=== PATIENT | male | born 1960 | race Caucasian/White ===

== ENCOUNTER 2017-07-19 08:46 | Inpatient (IN) | payer OTHER ==
[2017-07-19] VITALS (7 sets, daily range): BP systolic 92–103
[~2017-07-19] VITALS: Ht 177.8 cm; Wt 68.0 kg
[~2017-07-19 08:46] MED LIST: ALBMDI INH; ALBU2.5V7 INH; AMYL1CAP58 PO; DORNASE ALFA 2.5 MG INH; ESCI20TA PO; FERR-57 PO; FLUC200T38 PO; FLUT16SP16 NS; IPRA0.2S6 INH; IPRA3AMP9 INH; MULT-300 PO; PRO40 PO; QUET200T PO; SODI104S3 NS
[2017-07-19] MEDS ORDERED: ALBUTEROL SULFATE 0.083% 2.5 MG/3 ML VIAL.NEB INH ONE (08:52)
[2017-07-19] MEDS ORDERED: PIPERACILLIN/TAZO 3.375 GM in NS 50 ML IV ONE (09:00)
[2017-07-19] MEDS ORDERED: methylPREDNISolone SOD SUCC/PF 62.5 MG/ML VIAL IVP ONE (09:00)
[2017-07-19] MEDS ORDERED: NACL 0.9% 1,000 ML IV ONE (09:00)
[2017-07-19] MEDS ORDERED: ONDANSETRON HCL 4 MG/2 ML VIAL IVP ONE (09:00)
[2017-07-19] MEDS ORDERED: ALBUTEROL SULFATE 0.083% 2.5 MG/3 ML VIAL.NEB IH ONE (09:00)
[2017-07-19] MEDS ORDERED: PIPERACILLIN/TAZOBACTAM 3.375 GM/VIAL (ZOSYN) IV ONE (09:14)
[2017-07-19] MEDS ORDERED: QUET200T PO (09:29)
[2017-07-19] MEDS ORDERED: DOCU-144 PO (09:29)
[2017-07-19] MEDS ORDERED: OMEP20CA10 PO (09:42)
[2017-07-19] MEDS ORDERED: CIPR-211 PO (09:42)
[2017-07-19] MEDS ORDERED: HYDR-1189 PO (09:42)
[2017-07-19] MEDS ORDERED: IPRA4AER INH (09:42)
[2017-07-19] MEDS ORDERED: ESCI20TA PO (09:42)
[2017-07-19] MEDS ORDERED: SENN-153 PO (09:42)
[2017-07-19] MEDS ORDERED: LORA-258 PO (09:42)
[2017-07-19] MEDS ORDERED: IPRA0.2S6 INH (09:42)
[2017-07-19] MEDS ORDERED: ONDA4TAB5 PO ×2 (09:42)
[2017-07-19 09:45] LABS: HEMATOCRIT 28.5 % (36-54); HEMOGLOBIN 9.6 g/dL (14.0-18.0); MEAN CORPUSCULAR HEMOGLOBIN 28 pg (27-31); MEAN CORPUSCULAR HGB CONC 34 % (32-36); MEAN CORPUSCULAR VOLUME 85 fL (79.0-98.0); PLATELET COUNT (AUTO) 505 K/uL (130-430); RED BLOOD CELL COUNT(AUTO) 3.37 MIL/uL (4.2-6.2); RED CELL DISTRIBUTION WIDTH 15.5 % (9.0-15.0)
[2017-07-19 09:50] LABS: WHITE BLOOD COUNT (AUTO) 40.9 K/uL (4.8-10.8)
[2017-07-19 10:04] LABS: BASOPHILS % (MANUAL) 0 % (0-2); EOSINOPHILS % (MANUAL) 1 % (0-7); LYMPHOCYTES % (MANUAL) 3 % (20-46); MONOCYTES % (MANUAL) 0 % (0-11)
[2017-07-19 10:39] LABS: CALCIUM 9.7 mg/dL (8.4-11.0); CREATININE 1.18 mg/dL (0.55-1.30); POTASSIUM 3.7 mmol/L (3.5-5.1)
[2017-07-19 10:45] LABS: TOTAL BILIRUBIN 0.3 mg/dL (0.0-1.0)
[2017-07-19] MEDS: IPRATROPIUM/ALBUTEROL SULFATE 3 ML AMPUL.NEB INH SCH ×4 (11:00→23:00)
[2017-07-19] MEDS ORDERED: ONDANSETRON HCL 4 MG/2 ML VIAL IVP PRN (11:30)
[2017-07-19] MEDS: CEFEPIME 1 GM in D5W 50 ML IV SCH (13:05)
[2017-07-19] MEDS: methylPREDNISolone SOD SUCC/PF 62.5 MG/ML VIAL IVP SCH ×2 (13:06→21:35)
[2017-07-19] MEDS ORDERED: ONDANSETRON 4 MG ODT TAB PO PRN (16:00)
[2017-07-19] MEDS: GENTAMICIN 100 MG/ ISO-OSM 50 ML PREMIX IV SCH (16:40)
[2017-07-19] MEDS: QUEtiapine FUMARATE 100 MG TABLET PO SCH (18:02)
[2017-07-19] MEDS ORDERED: HYDROcodone/ACETAMIN 5-325 MG TAB (NORCO/ VICODIN) PO SCH (19:00)
[2017-07-19] MEDS ORDERED: LORazepam 1 MG TABLET PO SCH (19:00)
[2017-07-19] MEDS ORDERED: LORazepam 1 MG TABLET PO PRN (20:00)
[2017-07-19] MEDS: NACL 0.9% 1,000 ML IV SCH (21:34)
[2017-07-19] MEDS: metroNIDAZOLE 500 mg/NS 100 ML IV SCH (21:35)
[2017-07-19] MEDS: SODIUM CHLORIDE 0.65% NASAL SPRAY NS SCH (21:35)
[2017-07-19] MEDS: SENNOSIDES 8.6 MG TABLET PO SCH (21:36)
[2017-07-19] MEDS: DOCUSATE SODIUM 100 MG CAPSULE PO SCH (21:36)
[2017-07-19] MEDS: FERROUS SULFATE 325 MG TABLET.DR PO SCH (21:36)
[2017-07-19] MEDS: HYDROcodone/ACETAMIN 5-325 MG TAB (NORCO/ VICODIN) PO PRN (21:39)
[2017-07-20] VITALS: BP_SYST 92
[2017-07-20] MEDS: CEFEPIME 1 GM in D5W 50 ML IV SCH ×3 (00:03→23:57)
[2017-07-20] MEDS: IPRATROPIUM/ALBUTEROL SULFATE 3 ML AMPUL.NEB INH SCH ×6 (03:00→22:53)
[2017-07-20] MEDS: methylPREDNISolone SOD SUCC/PF 62.5 MG/ML VIAL IVP SCH ×3 (05:13→21:01)
[2017-07-20] MEDS: metroNIDAZOLE 500 mg/NS 100 ML IV SCH ×3 (05:13→21:01)
[2017-07-20 07:36] LABS: HEMATOCRIT 22.2 % (36-54); HEMOGLOBIN 7.4 g/dL (14.0-18.0); LYMPHOCYTES # (AUTO) 0.6 K/uL (1.0-5.5); LYMPHOCYTES % (AUTO) 3.1 % (20.5-51.5); MEAN CORPUSCULAR HEMOGLOBIN 28 pg (27-31); MEAN CORPUSCULAR HGB CONC 33 % (32-36); MEAN CORPUSCULAR VOLUME 85 fL (79.0-98.0); MONOCYTES # (AUTO) 0.3 K/uL (0.0-1.0); MONOCYTES % (AUTO) 1.6 % (1.7-9.3); NEUTROPHILS # (AUTO) 18.6 K/uL (1.8-7.7); NEUTROPHILS % (AUTO) 95.3 % (40.0-70.0); PLATELET COUNT (AUTO) 307 K/uL (130-430); RED BLOOD CELL COUNT(AUTO) 2.61 MIL/uL (4.2-6.2); RED CELL DISTRIBUTION WIDTH 15.9 % (9.0-15.0); WHITE BLOOD COUNT (AUTO) 19.5 K/uL (4.8-10.8)
[2017-07-20 08:06] LABS: CALCIUM 9.6 mg/dL (8.4-11.0); CREATININE 0.97 mg/dL (0.55-1.30); POTASSIUM 4.4 mmol/L (3.5-5.1)
[2017-07-20 08:21] LABS: ALBUMIN 1.8 g/dL (3.4-4.8); TOTAL BILIRUBIN 0.2 mg/dL (0.0-1.0)
[2017-07-20 08:45] VITALS: BP_SYST 101
[2017-07-20] MEDS ORDERED: ESCITALOPRAM OXALATE 10 MG TABLET PO SCH (09:00)
[2017-07-20] MEDS: CITALOPRAM HYDROBROMIDE 20 MG TABLET PO SCH (09:17)
[2017-07-20] MEDS: SENNOSIDES 8.6 MG TABLET PO SCH ×2 (09:17→21:01)
[2017-07-20] MEDS: DOCUSATE SODIUM 100 MG CAPSULE PO SCH ×2 (09:17→21:01)
[2017-07-20] MEDS: FERROUS SULFATE 325 MG TABLET.DR PO SCH ×3 (09:17→21:01)
[2017-07-20] MEDS: PANTOPRAZOLE SODIUM 40 MG TAB PO SCH (09:17)
[2017-07-20] MEDS: NACL 0.9% 1,000 ML IV SCH ×2 (09:18→15:55)
[2017-07-20] MEDS: SODIUM CHLORIDE 0.65% NASAL SPRAY NS SCH ×3 (09:18→21:01)
[2017-07-20 12:28] VITALS: BP_SYST 92
[2017-07-20] MEDS: HYDROcodone/ACETAMIN 5-325 MG TAB (NORCO/ VICODIN) PO PRN (13:27)
[2017-07-20] MEDS: GENTAMICIN 100 MG/ ISO-OSM 50 ML PREMIX IV SCH (16:01)
[2017-07-20 16:57] VITALS: BP_SYST 100
[2017-07-20] MEDS: QUEtiapine FUMARATE 100 MG TABLET PO SCH (17:33)
[2017-07-20 19:48] VITALS: BP_SYST 102
[2017-07-21] VITALS: BP_SYST 99
[2017-07-21] MEDS: IPRATROPIUM/ALBUTEROL SULFATE 3 ML AMPUL.NEB INH SCH ×5 (03:04→20:06)
[2017-07-21 04:00] VITALS: BP_SYST 100
[2017-07-21] MEDS: methylPREDNISolone SOD SUCC/PF 62.5 MG/ML VIAL IVP SCH (05:12)
[2017-07-21] MEDS: metroNIDAZOLE 500 mg/NS 100 ML IV SCH ×3 (05:13→22:00)
[2017-07-21 07:40] LABS: HEMATOCRIT 22.1 % (36-54); HEMOGLOBIN 7.3 g/dL (14.0-18.0); LYMPHOCYTES # (AUTO) 0.5 K/uL (1.0-5.5); LYMPHOCYTES % (AUTO) 3.1 % (20.5-51.5); MEAN CORPUSCULAR HEMOGLOBIN 28 pg (27-31); MEAN CORPUSCULAR HGB CONC 33 % (32-36); MEAN CORPUSCULAR VOLUME 85 fL (79.0-98.0); MONOCYTES # (AUTO) 0.3 K/uL (0.0-1.0); NEUTROPHILS # (AUTO) 14.3 K/uL (1.8-7.7); NEUTROPHILS % (AUTO) 94.9 % (40.0-70.0); PLATELET COUNT (AUTO) 336 K/uL (130-430); RED BLOOD CELL COUNT(AUTO) 2.62 MIL/uL (4.2-6.2); RED CELL DISTRIBUTION WIDTH 15.6 % (9.0-15.0); WHITE BLOOD COUNT (AUTO) 15.1 K/uL (4.8-10.8)
[2017-07-21 08:01] LABS: CALCIUM 9.8 mg/dL (8.4-11.0); CREATININE 0.94 mg/dL (0.55-1.30); POTASSIUM 4.4 mmol/L (3.5-5.1)
[2017-07-21] MEDS: SODIUM CHLORIDE 0.65% NASAL SPRAY NS SCH ×3 (08:36→21:16)
[2017-07-21] MEDS: SENNOSIDES 8.6 MG TABLET PO SCH ×3 (08:36→21:00)
[2017-07-21] MEDS: NACL 0.9% 1,000 ML IV SCH (08:36)
[2017-07-21] MEDS: CITALOPRAM HYDROBROMIDE 20 MG TABLET PO SCH (08:36)
[2017-07-21] MEDS: DOCUSATE SODIUM 100 MG CAPSULE PO SCH ×2 (08:36→21:00)
[2017-07-21] MEDS: PANTOPRAZOLE SODIUM 40 MG TAB PO SCH (08:36)
[2017-07-21] MEDS: FERROUS SULFATE 325 MG TABLET.DR PO SCH ×3 (08:36→20:52)
[2017-07-21 08:40] VITALS: BP_SYST 115
[2017-07-21 11:44] VITALS: BP_SYST 103
[2017-07-21] MEDS: CEFEPIME 1 GM in D5W 50 ML IV SCH (12:32)
[2017-07-21 16:12] VITALS: BP_SYST 109
[2017-07-21 20:00] VITALS: BP_SYST 109
[2017-07-21] MEDS: QUEtiapine FUMARATE 100 MG TABLET PO SCH (20:52)
[2017-07-21] MEDS: methylPREDNISolone SOD SUCC 40 MG/ML VIAL IVP SCH (21:00)
[2017-07-22] MEDS: NACL 0.9% 1,000 ML IV SCH (00:40)
[2017-07-22] MEDS: CEFEPIME 1 GM in D5W 50 ML IV SCH ×2 (01:00→11:59)
[2017-07-22 01:38] VITALS: BP_SYST 100
[2017-07-22] MEDS: metroNIDAZOLE 500 mg/NS 100 ML IV SCH ×2 (05:25→14:18)
[2017-07-22] MEDS: IPRATROPIUM/ALBUTEROL SULFATE 3 ML AMPUL.NEB INH SCH ×3 (07:07→15:33)
[2017-07-22 08:12] VITALS: BP_SYST 106
[2017-07-22 08:21] VITALS: BP_SYST 106
[2017-07-22] MEDS: CITALOPRAM HYDROBROMIDE 20 MG TABLET PO SCH (08:42)
[2017-07-22] MEDS: PANTOPRAZOLE SODIUM 40 MG TAB PO SCH (08:42)
[2017-07-22] MEDS: FERROUS SULFATE 325 MG TABLET.DR PO SCH ×2 (08:42→14:50)
[2017-07-22] MEDS: DOCUSATE SODIUM 100 MG CAPSULE PO SCH (08:44)
[2017-07-22] MEDS: SODIUM CHLORIDE 0.65% NASAL SPRAY NS SCH ×2 (08:45→15:13)
[2017-07-22] MEDS: SENNOSIDES 8.6 MG TABLET PO SCH (08:45)
[2017-07-22] MEDS: methylPREDNISolone SOD SUCC 40 MG/ML VIAL IVP SCH (08:45)
[2017-07-22] MEDS: HYDROcodone/ACETAMIN 5-325 MG TAB (NORCO/ VICODIN) PO PRN (10:29)
[2017-07-22] MEDS ORDERED: MORPHINE 2 MG/ML INJ. SYRINGE IVP ONE (11:45)
[2017-07-22 12:44] VITALS: BP_SYST 116
[2017-07-22 12:55] VITALS: BP_SYST 101
[2017-07-22] MEDS ORDERED: methylPREDNISolone SOD SUCC/PF 62.5 MG/ML VIAL IVP ONE ×2 (14:45)
[2017-07-22] MEDS ORDERED: methylPREDNISolone SOD SUCC/PF 62.5 MG/ML VIAL ONE (14:48)
[2017-07-22 16:41] VITALS: BP_SYST 99
== END 2017-07-22 17:30 | disposition hospice, home (50) | DRG 871 ==
LOC: SED 08:46 → STU 10:01
PROVIDERS: ADMIT Internal Medicine; ATTEND Internal Medicine
DX: A41.9 Sepsis, unspecified organism (principal); E43 Unspecified severe protein-calorie malnutrition; J96.21 Acute and chronic respiratory failure with hypoxia; J15.1 Pneumonia due to Pseudomonas; E84.9 Cystic fibrosis, unspecified; J47.0 Bronchiectasis with acute lower respiratory infection; F32.9 Major depressive disorder, single episode, unspecified; J84.10 Pulmonary fibrosis, unspecified; Z16.24 Resistance to multiple antibiotics; J43.9 Emphysema, unspecified; D63.8 Anemia in other chronic diseases classified elsewhere; R07.89 Other chest pain; Z90.49 Acquired absence of other specified parts of digestive tract; Z79.2 Long term (current) use of antibiotics; Z79.899 Other long term (current) drug therapy; Z88.8 Allergy status to other drugs, medicaments and biological substances; Z79.1 Long term (current) use of non-steroidal anti-inflammatories (NSAID); Z68.21 Body mass index [BMI] 21.0-21.9, adult
CPT/HCPCS: 36415; 36600; 71010; 71250-TC; 80048; 80053; 82803-TC; 82962; 83605; 83690-TC; 84484; 85007; 85025; 85027; 87040-TC; 87070-TC; 87081; 87186-TC; 87205-TC; 93005; 94640; 94760; 96365; 96375; 99291; J0692; J1030; J1580; J2270; J2405; J2543; J2930; J3490; J7030; J7050; J7060; Q0162